=== PATIENT | female | born 1990 | race Caucasian/White ===

== ENCOUNTER 2017-02-10 19:35 | Inpatient (IN) ==
[2017-02-10] MEDS ORDERED: Ondansetron 4 MG/2 ML VIAL IVP PRN (20:04)
[2017-02-10] MEDS ORDERED: Famotidine 20 MG/2 ML VIAL IVP PRN (20:04)
[2017-02-10] MEDS ORDERED: Naloxone 0.4 MG/ML INJ IVP PRN (20:04)
[2017-02-10] MEDS ORDERED: *HR* Nalbuphine 20 MG/ML AMPUL IVP PRN (20:05)
[2017-02-10] MEDS ORDERED: Penicillin G Potassium 5,000,000 UNIT in D5% in Water (Mini-Bag+) 100 ML IVPB ONE (20:05)
--- NOTE | 2017-02-10 20:33 | Anesthesia Evaluation PreOp ---
Date of Encounter: 02/10/17 Time of Encounter: 20:16 - Past History Planned Operation: vaginal del, G1 induction Cardiac History: Denies any Significant Hx Pulmonary History: Denies Any Significant HX EVP SALES History: Denies Any Significant HX Other Medical History: Other (L5-S1 disc injury over 7 yrs ago, at the time, had radiculopathy bilateral at times no weakness noted never past knees not positional at the time, rare symptoms in last 6 years. no weakness reported.) Anesthesia History: No Prior Anesthetic Complications, Past Anesthesia : Yes Alcohol Use: none Drug use: none Medications and Allergies Allergies No Known Allergies Allergy (Verified 08/18/16 16:58) Anesthesia Exam - HEENT Pupil (Motor): Pupils equal Mallampati: II Teeth: Normal Oral Opening: Greater than 3 - EVP SALES LOC: Oriented EVP SALES Motor: Normal RUE, Normal LUE, Normal RLE, Normal LLE, Normal Face EVP SALES Sensory: Normal: RUE, LUE, RLE, LLE, Face - Cardiac Rhythm: Regular Murmur: None - Pulmonary Breath Sounds: bilateral Clear Respiratory Effort: Symmetrical Anesthesia Assess/Plan ASA Score: 2 Modified [place] Scale for Level of Consciousness: Cooperative, oriented, and tranquil Anesthetic Plan: General, Regional Monitoring Plan: Standard Monitors
[2017-02-10 20:39] LABS: Basophils % 0.2 %; Eosinophils # 0.1 K/mcL (0.0-0.6); Eosinophils % 0.5 %; Hemoglobin 12.9 g/dL (11.5-15.4); Immature Platelets 9.2 % (1.1-6.1); Lymphocytes # 2.1 K/mcL (0.6-4.6); Lymphocytes % 18.4 %; Mean Corpuscular HGB Conc 34.9 g/dL (31.6-35.5); Mean Corpuscular Hemoglobin 30.8 pg (28.0-33.3); Mean Corpuscular Volume 88.3 fL (83.0-100.0); Mean Platelet Volume 11.5 fL (9.4-12.4); Monocytes # 0.6 K/mcL (0.0-1.3); Monocytes % 5.3 %; Neutrophils # 8.5 K/mcL (1.6-8.9); Platelet Count 180 K/mcL (140-400); Red Blood Count 4.19 M/mcL (3.82-4.97); Red Cell Distribution Width 12.9 % (11.5-14.5); Segmented Neutrophils % 74.6 %
[2017-02-10] MEDS ORDERED: miSOPROStol 100 MCG TABLET PO STA (20:39)
--- NOTE | 2017-02-10 20:44 | OB/GYN History & Physical ---
Date of Encounter: 02/10/17 Time of Encounter: 20:41 Assessment and Plan (1) 39 weeks gestation of Current visit: Yes Status: Acute admit for IOL (2) Elective induction of labor planned Current visit: Yes Status: Acute Cytotec 50mg PO Nubain and Epidural for pain management if desires. (3) Positive testing for group B Streptococcus Current visit: Yes Status: Acute PCN for group b strep prophylaxis. History of Present Illness Chief complaint: IOL, gestational age greater than 39 weeks HPI: Ms. More is a 26 year old female at 39w0d with EDC of 02/17/2017 presents to labor and delivery for scheduled induction of labor. Patient reports +FM and irregular contractions for the past 48 hours. Patient denies any vaginal bleeding or leaking of fluid. Blood type: O+, Rubella: Immune, Hep B: Nonreactive, RPR: nonreactive, GBS: Positive. Patient has NKDA. Past Med Surg Social Fam HX - Past Medical History Source: patient Medical history: no medical history Psychiatric history: no psych history - Past Surgical History Surgical History: other ([place] Teeth) - Social History Smoking Status: Never smoker Smokeless Tobacco Status: No Alcohol use: none Drug use: none Occupational status: employed Current living situation: Home - Independent Activity Level: Independent ambulation Recent Out of Country Travel Within the Last 8 Weeks: No Exposure or Possible Exposure to Illness During Travel: No Obstetrical History - Pregnancies : 1 Para: 0 Term: 0 : 0 Ab's: 0 Livin Medications and Allergies Allergies No Known Allergies Allergy (Verified 08/18/16 16:58) Review of System OB - Constitutional Constitutional ROS IM: no chills, no fatigue, no fever(s), no headache(s) - Cardiovascular Cardiovascular: pedal edema, no chest pain, no edema, no leg edema, no lightheadedness, no palpitations, no syncope - Respiratory Respiratory: no cough, no dyspnea - Gastrointestinal Gastrointestinal: no abdominal pain, no constipation, no diarrhea, no heartburn , no nausea, no vomiting - Genitourinary Genitourinary: no abnormal vaginal bleeding, no dysuria, no flank pain, no urinary frequency, no urinary incontinence, no urinary urgency, no vaginal discharge, no vaginal odor Exam - Constitutional Constitutional: well developed, well nourished, no acute distress, average body habitus - HEENT HEENT: Normocephaly, Mucus Membranes Moist - Neck Neck exam: full ROM, supple - Lungs Respiratory exam: CTAB - Cardiovascular Cardiovascular exam: RRR, +S1, +S2 - Abdomen Abdomen: Present: bowel sounds normal, gravid, non tender - Extremities Extremities exam: full ROM, normal capillary refill, normal inspection, pedal edema (2) Deep Tendon Reflex Grade: 2+ Normal - Cervix Dilation: 2 (In office) Effacement: 70 Station: -2 - Uterus Uterus exam: Present: normal size, normal contour - Anus/Rectum Anus/Rectum: Present: normal perianal skin - Comments Comments: FHR 115 bpm moderate variability +15x15 accels no decels noted. irregular contractions. Cat. 1 tracing. Results Result Diagrams: 02/10/17 20:35 Abnormal lab results WBC 11.4 K/mcL (4.3-11.1) H 02/10/17 20:35 Immature Plt Fraction 9.2 % (1.1-6.1) H 02/10/17 20:35 All other labs normal. - VTE Reasons for not Prescribing Prophylaxis: Treatment not Indicated - Low risk for VTE
[2017-02-10] MEDS: Ringers Solution, Lactated 1,000 ML IVC SCH (20:51)
[2017-02-11] MEDS ORDERED: Epidural Premix (fent/bupiv) 110 ML EP ONE ×3 (00:14→11:34)
[2017-02-11] MEDS: Penicillin G Potassium 2,500,000 UNIT in D5% in Water 100 ML IVPB SCH ×4 (01:20→13:30)
[2017-02-11] MEDS ORDERED: Oxytocin 20 units/ LR 1000 mL 20 UNIT/1,000 ML BAG IVC SCH ×2 (01:40→16:23)
--- NOTE | 2017-02-11 02:09 | Anesthesia Procedures ---
Date of Encounter: 02/10/17 Time of Encounter: 01:46 Procedures: Anesthesia - Epidural/Spinal Patient ID/Chart reviewed: Yes Patient examined: Yes OB Eval: : 1 OB Eval: Contractions: Non-stressed pattern Consent Obtained: Yes Site Prep: Aseptic Technique, Sterile prep and drape, 0.5% Chlorhexidine/Alcohol Patient position: upright Local Anesthetic: Lidocaine 1% Amount of Local Anesthetic used: 2 Touhy Needle Gauge: 18 Touhy Needle Depth (cm): 7 Catheter Depth at Skin (cm): 11 Test Dose (1.5% Lido + Epi): Volume given (mls): 3 Test Dose Result: Negative Loading Dose: Other: from 12 solution Loading Dose Administered: Thru Catheter Infusion Med: 0.125% Bupivacaine w/ 2 mcg/ml Fentanyl Infusion Rate (mls/hr): [address]: Tegaderm, Tape Interspace Used: L4-L5 Loss of Resistance (MARIAELENA): Yes (saline) Blood: No CSF: No Paresthesia: Yes (immediate with resolution on left leg. ) Procedure: vss though out, FHR via RN's
--- NOTE | 2017-02-11 02:18 | OB Labor Progress Note ---
Date of Encounter: 02/10/17 Time of Encounter: 01:59 Labor Progress Note - Subjective Subjective: Patient comfortable with epidural in place. Discussed POC. Patient denies any questions or concerns. - Cervix Cervix: 4/80/-1 - Heart Tones Heart Tones: 115 bpm moderate variability +15x15 accels no decels noted. Cat. 1 tracing. - [place]: 3-4 min apart. - Interventions Interventions: SVE, AROM moderate amount of clear fluid. IUPC placed without difficulty. Patient tolerated well. - Plan Plan: Will start Pitocin at this this time. Continue labor management.
[2017-02-11] MEDS: Ringers Solution, Lactated 1,000 ML IVC SCH ×2 (02:21→09:21)
--- NOTE | 2017-02-11 07:21 | OB Labor Progress Note ---
Date of Encounter: 02/10/17 Time of Encounter: 07:18 Labor Progress Note - Subjective Subjective: Patient resting comfortable with epidural in place. Patient denies any questions or concerns. Pitocin at 8 milliunits. - Cervix Cervix: 5/100/0 - Heart Tones Heart Tones: 115 bpm moderate variability +15x15 accels no decels noted. Cat. 1 tracing - [place]: 2-3.5 min apart - Interventions Interventions: SVE, patient repositioned - Plan Plan: Continue labor management.
[2017-02-11] MEDS ORDERED: 0.9 % Sodium Chloride 1,000 ML ONE (08:42)
--- NOTE | 2017-02-11 10:01 | OB Labor Progress Note ---
Date of Encounter: 02/10/17 Time of Encounter: 09:57 Labor Progress Note - Subjective Subjective: Patient comfortable with epidural in place. Patient on right side. Reports feeling pressure with contractions. Pitocin is currently off and amnioinfusion is infusing. - Cervix Cervix: 7/100/1 - Heart Tones Heart Tones: 125 bpm moderate variability +15x15 accels early decels noted. - [place]: 2-3 min apart - Interventions Interventions: SVE, repositioned to left side with peanut ball. - Plan Plan: Continue labor management.
[2017-02-11] MEDS ORDERED: Lidocaine 1% 20 ML MDV ONE (13:16)
--- NOTE | 2017-02-11 14:49 | OB/GYN Procedure Note ---
Delivery - Delivery Date: 02/11/17 Provider: Mady Kimbrough Intrapartum events: none Delivery induction: misoprostol Delivery augmentation: rupture of membranes, pitocin Delivery monitor: external FHT, external uterine, internal uterine Anesthesia: epidural Estimated Blood Loss: 300 - (s) Infant A Infant Delivery Date: 02/11/17 Delivery Time: 14:15 Presentation: vertex Position: OA Gender: Male Viability: Viable Pounds: 7 Ounces: 0 Weight Gram: 3.185 kg at 1 minute: 8 at 5 mins: 9 Shoulder Dystocia: not encountered Specimens collected: cord blood Placenta: spontaneous Cord: 3 umbilical vessels - Repair Episiotomy: none Laceration Description: Perineal - 2nd Degree (repaired with 3-0 vicryl) - Complications Delivery complications: none - Disposition Mom disposition: stable in LDR disposition: stable in LDR - Comments Comments: Called to LDR, patient feeling pressure. Patient was complete and +2 station. Patient was prepped for delivery. Patient spontaneously delivered a male , no nuchal, no shoulder and no meconium noted. was placed on maternal abdomen. Cord was clamped and cut after pulsation ceased. A second degree laceration was repaired with 3-0 vicryl. Placenta delivered spontaneously and intact. Infant placed skin to skin both mother and infant are stable in recovery.
[2017-02-11] MEDS ORDERED: *HR* HYDROcodone/Acet 5/325 mg TABLET PO PRN (16:23)
[2017-02-11] MEDS ORDERED: Acetaminophen 325 MG TABLET PO PRN (16:23)
[2017-02-11] MEDS ORDERED: Lanolin 7 G OINT...G. TP PRN (16:23)
[2017-02-11] MEDS ORDERED: Benzocaine/Menthol 56 GM AEROSOL SPRAY TP PRN (16:23)
[2017-02-11] MEDS: Ibuprofen 600 MG TABLET PO PRN (18:16)
[2017-02-12] MEDS: Ibuprofen 600 MG TABLET PO PRN ×2 (02:43→10:57)
[2017-02-12 08:27] VITALS: BP 111/76
[2017-02-12] MEDS ORDERED: Prenatal Vit/FA 1 EACH TABLET PO SCH (09:00)
--- NOTE | 2017-02-12 09:09 | Discharge Summary ---
Date of Encounter: 02/10/17 Time of Encounter: 09:07 - Discharge Diagnosis (1) 39 weeks gestation of Priority: Secondary Status: Acute (2) Elective induction of labor planned Priority: Secondary Status: Acute (3) Positive testing for group B Streptococcus Priority: Secondary Status: Acute (4) Vaginal delivery Priority: Primary Status: Acute Comments: continue routine care discharge home today follow up on 4 weeks (5) Breast feeding status of mother Priority: Secondary Status: Acute Comments: support prn - Discharge Medications Prescriptions: Ibuprofen [Motrin] 600 mg PO Q6HR PRN #60 tablet PRN Reason: Cramping Breast Pump [BREAST PUMP] 1 each .ROUTE AD #1 each Docusate [Colace] 100 mg PO BID #60 capsule Home Medications: Pnv with Ca,No.72/Iron,Carb/FA [ Plus Iron Tablet] 1 each PO DAILY 02/10 [History] Breast Pump [BREAST PUMP] 1 each .ROUTE AD #1 each 02/12/17 [Rx] Docusate [Colace] 100 mg PO BID #60 capsule 02/12/17 [Rx] Ibuprofen [Motrin] 600 mg PO Q6HR PRN #60 tablet 02/12/17 [Rx] Vit/FA 1 each PO DAILY tablet 02/12/17 [Rx] Allergies/Adverse Reactions: Allergies No Known Allergies Allergy (Verified 08/18/16 16:58) Data Procedures and tests throughout hospitalization: Laboratory Tests 02/10/17 20:35 WBC 11.4 H RBC 4.19 Hgb 12.9 Hct 37.0 MCV 88.3 MCH 30.8 MCHC 34.9 RDW 12.9 Plt Count 180 MPV 11.5 Immature Gran % 1.0 Seg Neutrophils % 74.6 Lymphocytes % 18.4 Monocytes % 5.3 Eosinophils % 0.5 Basophils % 0.2 Neutrophils # 8.5 Lymphocytes # 2.1 Monocytes # 0.6 Eosinophils # 0.1 Basophils # 0.0 Immature Plt Fraction 9.2 H Date of admission: 02/10/17 19:35 Primary care physician: PCP NO Consults: 02/11/17 16:23 Consult to [facility] [CONS] Routine Comment: Vaginal delivery, consult needed Discharging clinician: Mady Kimbrough Anticipated date of discharge: 02/12/17 - Patient Status Disposition: Home, Self-Care Condition: Good Functional capacity at discharge: independent ambulation - Discharge Instructions Follow Up With: NO,PCP [Primary Care Provider] - Mady Kimbrough CNM [Non-Partnered Physician] - - Diet and Activity Activity: increase activity as tolerated Diet: regular diet Hospital Course Reason for admission: induction of labor Delivery: Episiotomy: none Laceration: 2nd degree Other procedures: none complications: none Discharge diagnosis: IUP at term delivered baby: male (breast feeding) Time Attestation: Total time spent providing and/or coordinating discharge services: Time Spent: Less than 30 minutes Exam - Constitutional Vitals: Temp Pulse Resp BP Pulse Ox 98.2 F 76 16 111/76 97 02/12/17 07:40 02/12/17 07:40 02/12/17 07:40 02/12/17 07:40 02/12/17 03:45 General appearance IM: A&O X 3, pleasant, answers questions appropriately - Respiratory Respiratory exam: Present: CTAB - Cardiovascular Cardiovascular exam IM: Present: RRR, +S1, +S2 - GI/Abdominal GI/Abdominal exam IM: normal bowel sounds - Uterine Tone: Firm Uterus Position: 1 Finger Below Umbilicus, Midline - Extremities Exam Extremities exam IM: Present: full ROM, normal capillary refill, normal inspection - Neurological Exam Neurological exam: alert, oriented X3, reflexes normal
== END 2017-02-12 17:02 | disposition home or self-care (01) | DRG 774 ==
LOC: 1NENULAB 19:35 → 1NENUOBS 02-11 17:18
PROVIDERS: ADMIT Advanced Practice Midwife; ATTEND Advanced Practice Midwife

== ENCOUNTER 2017-05-10 08:15 | Observation (INO) ==
[2017-05-10] MEDS: Ringers Solution, Lactated 1,000 ML IVC SCH ×2 (14:27→19:30)
--- NOTE | 2017-05-10 15:01 | OB/GYN History & Physical ---
Date of Encounter: 05/10/17 Time of Encounter: 14:59 Assessment and Plan (1) IUD migration Current visit: Yes Status: Acute Plan for surgical removal Qualifiers: Encounter type: initial encounter Qualified Code(s): T83.89XA - Other specified complication of genitourinary prosthetic devices, implants and grafts , initial encounter History of Present Illness Chief complaint: Removal of IUD HPI: Ms. More is a 27 year old female presents for surgical removal of migrated IUD that causes abdominal pain and cramping. Past Med Surg Social Fam HX - Past Medical History Source: patient Medical history: no medical history Psychiatric history: no psych history - Past Surgical History Surgical History: other - Social History Smoking Status: Never smoker Smokeless Tobacco Status: No Alcohol use: none Drug use: none Occupational status: employed Current living situation: Home - Independent Activity Level: Independent ambulation Recent Out of Country Travel Within the Last 8 Weeks: No Exposure or Possible Exposure to Illness During Travel: No - Family History Mother Living Status: Still Living Hx Family Cardiac Disorders: Yes (HTN) Hx Family Respiratory Disorders: No Hx Family Cancer: No Hx Family GI Disorders: No Hx Family Endocrine Disorder: No Hx Family Neuromuscular Disorders: No Hx Family Neurologic Disorders: No Hx Family HEENT Disorders: No Hx Family Autoimmune Disorders: No Obstetrical History - Pregnancies : 1 Para: 1 Term: 1 : 0 Ab's: 0 Livin Medications and Allergies Pnv with Ca,No.72/Iron,Carb/FA [ Plus Iron Tablet] 1 each PO DAILY 02/10 [History] Breast Pump [BREAST PUMP] 1 each .ROUTE AD #1 each 02/12/17 [Rx] Docusate [Colace] 100 mg PO BID #60 capsule 02/12/17 [Rx] Ibuprofen [Motrin] 600 mg PO Q6HR PRN #60 tablet 02/12/17 [Rx] Vit/FA 1 each PO DAILY tablet 02/12/17 [Rx] Allergies No Known Allergies Allergy (Verified 08/18/16 16:58) Review of System OB - Constitutional Constitutional ROS IM: no fever(s), no headache(s), no weakness - Cardiovascular Cardiovascular: no chest pain, no dyspnea, no edema, no palpitations, no slow heart rate, no syncope - Respiratory Respiratory: no cough, no pain on inspiration - Gastrointestinal Gastrointestinal: abdominal pain (occasional ), cramping (occasional ), no change in bowel habits, no diarrhea, no heartburn, no nausea, no vomiting - Genitourinary Genitourinary: no abnormal vaginal bleeding, no dysuria, no flank pain, no urinary frequency, no urinary hesitancy, no urinary incontinence, no urinary urgency, no vaginal discharge, no vaginal odor, no vaginal pruritis - Menstruation Menstruation: period normal (last period 1 week ago) Exam - Vital Signs Vital signs: Initial Vital Signs Temp Pulse Resp BP Pulse Ox 98.4 F 75 16 119/82 98 05/10/17 14:18 05/10/17 14:18 05/10/17 14:18 05/10/17 14:18 05/10/17 14:18 - Constitutional Constitutional: well developed, well nourished, no acute distress, average body habitus - HEENT HEENT: Normocephaly, Mucus Membranes Moist - Neck Neck exam: full ROM, supple - Lungs Respiratory exam: CTAB - Cardiovascular Cardiovascular exam: RRR, +S1, +S2 - Abdomen Abdomen: Present: bowel sounds normal, gravid, non tender - Extremities Extremities exam: full ROM, normal inspection, warm Deep Tendon Reflex Grade: 2+ Normal Results All other labs normal.
--- NOTE | 2017-05-10 15:23 | Anesthesia Evaluation PreOp ---
Date of Encounter: 05/10/17 Time of Encounter: 16:15 - Past History Planned Operation: Laparoscopic removal of IUD Cardiac History: Denies any Significant Hx Pulmonary History: Denies Any Significant HX MAILROOM PERSONNEL History: Denies Any Significant HX Other Medical History: Denies Any Significant HX Anesthesia History: No Prior Anesthetic Complications, Past Anesthesia (wisdom teeth surgery) Alcohol Use: none Drug use: none Medications and Allergies Pnv with Ca,No.72/Iron,Carb/FA [ Plus Iron Tablet] 1 each PO DAILY 02/10 [History] Breast Pump [BREAST PUMP] 1 each .ROUTE AD #1 each 02/12/17 [Rx] Docusate [Colace] 100 mg PO BID #60 capsule 02/12/17 [Rx] Ibuprofen [Motrin] 600 mg PO Q6HR PRN #60 tablet 02/12/17 [Rx] Vit/FA 1 each PO DAILY tablet 02/12/17 [Rx] Allergies No Known Allergies Allergy (Verified 08/18/16 16:58) - Meds/Allergy Pre-op Review Medications Reviewed: Yes Allergies Reviewed: Yes Beta Blockers on Current Med List: No Anesthesia Results - Labs Laboratory Tests 02/10/17 05/05/17 20:35 09:06 WBC 11.4 H Hgb 12.9 Hct 37.0 Plt Count 180 Serum , Qual Negative Anesthesia Exam Last Vital Signs Temp 98.4 F 05/10/17 14:18 Pulse 75 05/10/17 14:18 Resp 16 05/10/17 14:18 BP 119/82 05/10/17 14:18 Pulse Ox 98 05/10/17 14:18 Weight: 93 kg NPO (# of Hours): >> 8 hrs - HEENT Pupil (Motor): Pupils equal, EOMI Mallampati: II Teeth: Normal (veneers) Oral Opening: Greater than 3 - MAILROOM PERSONNEL LOC: Oriented MAILROOM PERSONNEL Motor: Normal RUE, Normal LUE, Normal RLE, Normal LLE, Normal Face - Cardiac Rhythm: Regular Murmur: None - Pulmonary Breath Sounds: bilateral Clear Respiratory Effort: Symmetrical Anesthesia Assess/Plan ASA Score: 1 Modified [place] Scale for Level of Consciousness: Cooperative, oriented, and tranquil Anesthetic Plan: General Monitoring Plan: Standard Monitors Recovery Plan: PACU
--- NOTE | 2017-05-10 15:36 | History & Physical Report ---
Date of Encounter: 05/10/17 Time of Encounter: 15:35 24 Hour HP Update - Instructions Instructions: If the History and Physical is less than 30 days old and was completed prior to A.M. admission and or procedure and has NOT been updated on calendar day of procedure please complete this update prior to performing procedure. - Update Patient reports changes in Medical Condition: No Changes in examination, assessment, or condition: No Changes in Medication: No Preop tests/diagnostics Reviewed: Yes Surgery Remains Indicated: Yes Consent for Planned Operative Procedure(s) Verified: Yes - Pre-Operative Checklist Preoperative Checklist Indicated: Yes Prophylactic Antibiotic Ordered: Yes Home Medications Include Beta Bj: No Beta Bj Taken Today (Day of Surgery): No Beta Bj Taken Yesterday (Day Prior to Surgery): No Is VTE Prophylaxis Indicated?: Yes
[2017-05-10] MEDS ORDERED: Bupivacaine/EPI 1:200k 0.25%PF 10 ML VIAL INFILT ONE (15:45)
[2017-05-10] MEDS ORDERED: Lidocaine -MPF 4% 5 ML AMPUL ONE (15:48)
[2017-05-10] MEDS ORDERED: Lidocaine -MPF 2% 2 ML VIAL ONE (15:50)
[2017-05-10] MEDS ORDERED: Dexamethasone 4 MG/ML VIAL ONE (15:50)
[2017-05-10] MEDS ORDERED: *HR* FentaNYL (PF) 100 MCG/2 ML VIAL ONE (15:50)
[2017-05-10] MEDS ORDERED: *HR* Propofol 200 MG/20 ML VIAL IVP ONE ×2 (15:50→19:12)
[2017-05-10] MEDS ORDERED: *HR* Midazolam HCl 2 MG/2 ML VIAL ONE ×2 (15:50→16:28)
[2017-05-10] MEDS ORDERED: Ondansetron 4 MG/2 ML VIAL ONE (15:50)
[2017-05-10] MEDS ORDERED: Neostigmine Methylsulfate 3 MG/3 ML SYRINGE ONE ×2 (15:55→19:42)
[2017-05-10] MEDS ORDERED: *HR* Succinylcholine 200 MG/10 ML VIAL IVP ONE (15:55)
[2017-05-10] MEDS ORDERED: *HR* Rocuronium Bromide 50 MG/5 ML VIAL ONE ×2 (15:55→19:22)
[2017-05-10] MEDS ORDERED: Acetaminophen IV 1,000 MG/100 ML INFUS..BTL ONE (16:09)
[2017-05-10] MEDS ORDERED: Scopolamine Patch 1.5 MG PATCH.TD72 ONE (16:10)
[2017-05-10] MEDS ORDERED: *HR* HYDROmorphone (PF) 1 MG/ML SYRINGE IVP PRN (16:30)
[2017-05-10] MEDS ORDERED: Ketorolac 15 MG/ML VIAL IVP ONE (16:30)
[2017-05-10] MEDS ORDERED: Ondansetron 4 MG/2 ML VIAL IVP ONE (16:30)
[2017-05-10] MEDS ORDERED: *HR* Promethazine 25 MG/ML VIAL IVP PRN (16:30)
[2017-05-10] MEDS ORDERED: *HR* Labetalol 20 MG/4 ML SYRINGE IVP PRN (16:30)
[2017-05-10] MEDS ORDERED: Dexamethasone 4 MG/ML VIAL IVP ONE (16:30)
[2017-05-10] MEDS ORDERED: Bupivacaine/EPI 1:200k 0.25%PF 30 ML VIAL ONE (18:38)
--- NOTE | 2017-05-10 19:05 | Discharge Summary ---
Outpatient Proc Discharge Plan - Plan Prescriptions: Ibuprofen [Motrin] 600 mg PO Q6HR PRN #40 tab PRN Reason: post op pain Oxycodone HCl/Acetaminophen [Percocet 5-325 mg Tablet] 1 each PO Q4H PRN #30 tablet PRN Reason: post op pain Home Medications: Pnv with Ca,No.72/Iron,Carb/FA [ Plus Iron Tablet] 1 each PO DAILY 02/10 [History] Breast Pump [BREAST PUMP] 1 each .ROUTE AD #1 each 02/12/17 [Rx] Docusate [Colace] 100 mg PO BID #60 capsule 02/12/17 [Rx] Ibuprofen [Motrin] 600 mg PO Q6HR PRN #60 tablet 02/12/17 [Rx] Vit/FA 1 each PO DAILY tablet 02/12/17 [Rx] Ibuprofen [Motrin] 600 mg PO Q6HR PRN #40 tab 05/10/17 [Rx] Oxycodone HCl/Acetaminophen [Percocet 5-325 mg Tablet] 1 each PO Q4H PRN #30 tablet 05/10/17 [Rx]
[2017-05-10] MEDS ORDERED: Ketorolac 30 MG/ML VIAL ONE (19:39)
[2017-05-10] MEDS ORDERED: *HR* OxyCODONE/APAP 5/325 TABLET PO ONE (19:44)
--- NOTE | 2017-05-10 19:47 | OB/GYN Procedure Note ---
Laparoscopy Procedure - Diagnosis Date of procedure: 05/10/17 Pre-op diagnosis: other (Malpostioned IUD) Post-op diagnosis: same - Procedure Laparoscopy procedure: operative laparoscopy, myomectomy (IUD removal), other Surgeon: Demario Friend Anesthesia Type: General Estimated blood loss (cc): 10 Complications: none Findings: IUD in post cul de sac Disposition: PACU
[2017-05-10] MEDS ORDERED: *HR* HYDROmorphone 2 MG/ML SYRINGE ONE (19:49)
--- NOTE | 2017-05-10 21:20 | Anesthesia Evaluation Post Op ---
Date of Encounter: 05/10/17 Time of Encounter: 20:30 - Vital Signs Vital Signs: Vital Signs/O2 Sat/Glucose, Most Current Temp Pulse Resp BP Pulse Ox 05/10/17 20:30 97.8 F 70 18 114/75 99 05/10/17 20:20 65 16 125/84 99 05/10/17 20:10 63 16 128/53 99 05/10/17 20:00 97.5 F L 61 18 101/65 99 05/10/17 19:44 97.6 F 62 16 110/73 100 - Lungs Lungs: Clear Ascult./Percussion - Airway Airway: Non-obstructed - Cardiovascular Regular Rate - Mental Status Mental Status: Alert & Oriented, Answers Appropriately - Pain Pain Scale: 0 Pain Scale used: Numeric (1 - 10) - Nausea Vomiting Nausea Vomiting: Not Present - Hydration Hydration: Ice chips, Has not voided - Discharge PostOp Status: Transfer Patient to floor Anes Supervising Prov Stmt: Pt seen/evaluated, VSS and pt has met criteria for discharge to floor. - MD Andrew
[2017-05-10] MEDS ORDERED: *HR* OxyCODONE/APAP 5/325 TABLET PO PRN (21:35)
[2017-05-10 22:33] VITALS: BP 108/68
== END 2017-05-10 22:15 | disposition home or self-care (01) ==
LOC: 1NENUOBS
PROVIDERS: ADMIT Obstetrics & Gynecology; ATTEND Obstetrics & Gynecology

== ENCOUNTER 2020-09-17 15:13 | Inpatient (IN) ==
[2020-09-17 14:43] LABS: Basophils % 0.2 %; Eosinophils % 0.3 %; Hematocrit 35.3 % (35.3-44.9); Hemoglobin 11.6 g/dL (11.5-15.4); Immature Granulocytes % 0.6 % (0-4); Lymphocytes # 1.6 K/mcL (0.6-4.6); Mean Corpuscular HGB Conc 32.9 g/dL (31.6-35.5); Mean Corpuscular Hemoglobin 27.6 pg (28.0-33.3); Mean Corpuscular Volume 83.8 fL (83.0-100.0); Mean Platelet Volume 11.7 fL (9.4-12.4); Monocytes # 0.6 K/mcL (0.0-1.3); Monocytes % 5.1 %; Platelet Count 224 K/mcL (140-400); Red Blood Count 4.21 M/mcL (3.82-4.97); Red Cell Distribution Width 13.8 % (11.5-14.5); Segmented Neutrophils % 79.8 %; White Blood Count 11.3 K/mcL (4.3-11.1)
[~2020-09-17 15:13] MED LIST: *HR* FentaNYL (PF) 100 MCG/2 ML VIAL IVP PRN; Famotidine 20 MG/2 ML VIAL IVP PRN; Metoclopramide 10 MG/2 ML VIAL IVP PRN; Naloxone 0.4 MG/ML INJ IVP PRN
[2020-09-17] MEDS ORDERED: Ringers Solution, Lactated 2,000 ML ONE (15:14)
[2020-09-17] MEDS ORDERED: Ringers Solution, Lactated 1,000 ML IVC SCH (15:15)
[2020-09-17] MEDS ORDERED: Penicillin G Potassium 5,000,000 UNIT in 0.9 % Sodium Chloride Mini Bag 100 ML IVPB ONE (15:15)
[2020-09-17] MEDS ORDERED: EPHEDrine 50 MG/ML VIAL IVP PRN (15:40)
[2020-09-17] MEDS ORDERED: *HR* FentaNYL (PF) 100 MCG/2 ML VIAL EP ONE (15:40)
[2020-09-17] MEDS ORDERED: *HR* FentaNYL (PF) 100 MCG/2 ML VIAL ONE (15:42)
[2020-09-17] MEDS: Epidural Premix (fent/bupiv) 110 ML EP SCH ×2 (15:47→22:45)
[2020-09-17] MEDS ORDERED: Oxytocin 20 units/ LR 1000 mL 20 UNIT/1,000 ML BAG IVC SCH (17:00)
[2020-09-17] MEDS: Penicillin G Potassium 2,500,000 UNIT/105 ML MLS IVPB SCH ×2 (19:50→23:40)
[2020-09-17 21:04] LABS: Amphetamine Screen,Urine Negative ng/mL (Cutoff=1000); Barbiturate Screen,Urine Negative ng/mL (Cutoff=200); Benzodiazepines Screen,Urine Negative ng/mL (Cutoff=200); Cannabinoid Screen,Urine Negative ng/mL (Cutoff = 50); Cocaine Screen,Urine Negative ng/mL (Cutoff= 300); Opiate Screen,Urine Negative ng/mL (Cutoff=300); Phencyclidine Screen,Urine Negative ng/mL (Cutoff=25)
[2020-09-18] MEDS ORDERED: Oxytocin 20 units/ LR 1000 mL 20 UNIT/1,000 ML BAG IVC SCH (05:05)
[2020-09-18] MEDS ORDERED: *HR* HYDROcodone/Acet 5/325 mg TABLET PO PRN (05:05)
[2020-09-18] MEDS ORDERED: Ibuprofen 600 MG TABLET PO PRN (05:05)
[2020-09-18] MEDS ORDERED: Lanolin 7 G OINT...G. TP PRN (05:05)
[2020-09-18] MEDS ORDERED: Acetaminophen 325 MG TABLET PO PRN (05:05)
[2020-09-18] MEDS ORDERED: Benzocaine/Menthol 56 GM AEROSOL SPRAY TP PRN (05:05)
[2020-09-18] MEDS ORDERED: Oxytocin 20 units/ LR 1000 mL 20 UNIT/1,000 ML BAG IVC ONE (05:09)
[2020-09-18] MEDS: Prenatal Vit/FA 1 EACH TABLET PO SCH (07:32)
[2020-09-18] MEDS ORDERED: BuPROPion XL (24 HR) 150 MG TABLET PO SCH (21:00)
[2020-09-19] MEDS ORDERED: FLU Vac QV 20-21 (6Month+)/PF 0.5 ML SYRINGE IM ONE (07:33)
[2020-09-19 07:56] VITALS: BP 135/83
[2020-09-19] MEDS: Prenatal Vit/FA 1 EACH TABLET PO SCH (08:00)
== END 2020-09-19 08:40 | disposition home or self-care (01) | DRG 807 ==
LOC: 1NENULAB → 1NENUOBS 09-18 06:00
PROVIDERS: ADMIT Advanced Practice Midwife; ATTEND Advanced Practice Midwife